=== PATIENT | male | born 1965 | race Caucasian/White ===

== ENCOUNTER 2017-07-24 13:46 | Inpatient (IN) | payer BC ==
--- NOTE | 2017-07-24 14:29 | PDOC ---
History of Present Illness - General History Source: Patient Exam Limitations: No Limitations - History of Present Illness Initial Comments: 07/24/17 15:29 The patient is a 52 year old male with a significant PMH of GERD who presents to the emergency department sent in by Dr. Bonner for further evaluation of chest pain that began approximately last night. The patient states the chest pain was of sudden onset located on left parasternum that radiates to the back, 5/10 in severity, intermittent, alleviated by lying flat, and exacerbated with walking. The patient endorses shortness of breath but denies diaphoresis, headache, dizziness, fever, chills, nausea, vomit, diarrhea and constipation. Denies dysuria, frequency, urgency and hematuria. Allergies: NKA Past surgical history: None reported. Social history: Hookah use. No reported drug or alcohol use. PCP: Dr. Bonner <Carly Warren - Last Filed: 07/24/17 15:38> <Adrianna Young - Last Filed: 07/25/17 21:18> - General Chief Complaint: Chest Pain Stated Complaint: CHEST PAIN Time Seen by Provider: 07/24/17 14:17 Past History <Carly Warren - Last Filed: 07/24/17 15:38> - Past Medical History Anemia: No Asthma: No Cancer: No Cardiac Disorders: No CVA: No COPD: No CHF: No Dementia: No Diabetes: No GI Disorders: Yes (GERD) Disorders: No HTN: No Hypercholesterolemia: No Liver Disease: No Seizures: No Thyroid Disease: No - Surgical History Abdominal Surgery: No Appendectomy: No Cardiac Surgery: No Cholecystectomy: No Lung Surgery: No Neurologic Surgery: No Orthopedic Surgery: No - Suicide/Smoking/Psychosocial Hx Smoking History: Former smoker Have you smoked in the past 12 months: No If you are a former smoker, when did you quit?: 14 YRS AGO Information on smoking cessation initiated: No Hx Alcohol Use: No Drug/Substance Use Hx: No Substance Use Type: None <Adrianna Young - Last Filed: 07/25/17 21:18> - Past Medical History Allergies/Adverse Reactions: Allergies Allergy/AdvReac Type Severity Reaction Status Date / Time No Known Allergies Allergy Verified 07/24/17 14:05 Home Medications: Ambulatory Orders NK [No Known Home Medication] 07/24/17 Review of Systems - Review of Systems Able to Perform ROS?: Yes Comments:: 07/24/17 15:37 GENERAL/CONSTITUTIONAL: No fever or chills. No weakness. HEAD, EYES, EARS, NOSE AND THROAT: No change in vision. No ear pain or discharge. No sore throat. CARDIOVASCULAR: (+) CP. (+) SOB. RESPIRATORY: No cough, wheezing, or hemoptysis. GASTROINTESTINAL: No nausea, vomiting, diarrhea or constipation. GENITOURINARY: No dysuria, frequency, or change in urination. MUSCULOSKELETAL: No joint or muscle swelling or pain. No neck or back pain. SKIN: No rash NEUROLOGIC: No headache, vertigo, loss of consciousness, or change in strength/ sensation. ENDOCRINE: No increased thirst. No abnormal weight change. HEMATOLOGIC/LYMPHATIC: No anemia, easy bleeding, or history of blood clots. ALLERGIC/IMMUNOLOGIC: No hives or skin allergy. <Carly Warren - Last Filed: 07/24/17 15:38> *Physical Exam - Vital Signs Last Vital Signs Temp Pulse Resp BP Pulse Ox 98.1 F 88 19 133/90 97 07/24/17 14:05 07/24/17 14:05 07/24/17 14:05 07/24/17 14:05 07/24/17 14:05 <Carly Warren - Last Filed: 07/24/17 15:38> - Vital Signs Last Vital Signs Temp Pulse Resp BP Pulse Ox 98.1 F 88 19 133/90 97 07/24/17 14:05 07/24/17 14:05 07/24/17 14:05 07/24/17 14:05 07/24/17 14:05 - Physical Exam Comments: GENERAL: Awake, alert, and fully oriented, in no acute distress HEAD: No signs of trauma EYES: PERRLA, EOMI, sclera anicteric, conjunctiva clear ENT: Auricles normal inspection, hearing grossly normal, nares patent, oropharynx clear without exudates. Moist mucosa NECK: Normal ROM, supple, no lymphadenopathy, JVD, or masses LUNGS: Breath sounds equal, clear to auscultation bilaterally. No wheezes, and no crackles HEART: Regular rate and rhythm, normal S1 and S2, no murmurs, rubs or gallops ABDOMEN: Soft, nontender, normoactive bowel sounds. No guarding, no rebound. No masses EXTREMITIES: Normal range of motion, no edema. No clubbing or cyanosis. No cords, erythema. +L calf tenderness. NEUROLOGICAL: Cranial nerves II through XII grossly intact. Normal speech, normal gait SKIN: Warm, Dry, normal turgor, no rashes or lesions noted. <Adrianna Young - Last Filed: 07/25/17 21:18> Heart Score/ECG Review - History History: Moderately suspicious - Electrocardiogram EKG: Normal - Age Age: 45-65 - Risk Factors Risk Factors Heart Score: Yes Smoking History Based on the list above the patient has:: 1-2 risk factors - Troponin Troponin: </= normal limit - Score Heart Score - Total: 3 - ECG Impressions Comment:: EKG read 14:07- NSR 84 bpm, no acute ST/T changes <Adrianna Young - Last Filed: 07/25/17 21:18> ED Treatment Course - LABORATORY CBC & Chemistry Diagram: 07/24/17 15:20 07/24/17 15:20 <Carly Warren - Last Filed: 07/24/17 15:38> - LABORATORY CBC & Chemistry Diagram: 07/24/17 15:20 07/24/17 15:20 <Adrianna Young - Last Filed: 07/25/17 21:18> Medical Decision Making - Medical Decision Making Case d/w Dr. Bonner via phone. Patient found to have LLE DVT. Will obtain CTA to r/o PE. Will admit based on chest pain. <Adrianna Young - Last Filed: 07/25/17 21:18> *DC/Admit/Observation/Transfer - Attestations Scribe Attestion: 07/24/17 15:38 Documentation prepared by Carly Warren, acting as medical coding auditor for Adrianna Young MD. <Carly Warren - Last Filed: 07/24/17 15:38> - Discharge Dispostion Admit: Yes <Adrianna Young - Last Filed: 07/25/17 21:18> Diagnosis at time of Disposition: Chest pain Qualifiers: Chest pain type: unspecified Qualified Code(s): R07.9 - Chest pain, unspecified DVT (deep venous thrombosis) Qualifiers: DVT location: lower extremity Affected thrombotic vein of extremity: unspecified vein of extremity Chronicity: acute Laterality: left Qualified Code( s): I82.402 - Acute embolism and thrombosis of unspecified deep veins of left lower extremity - Discharge Dispostion Condition at time of disposition: Stable
--- NOTE | 2017-07-24 14:33 | EKG ---
Test Reason : Blood Pressure : / mmHG Vent. Rate : 084 BPM Atrial Rate : 084 BPM P-R Int : 136 ms QRS Dur : 086 ms QT Int : 370 ms P-R-T Axes : 047 -01 024 degrees QTc Int : 437 ms NORMAL SINUS RHYTHM NONSPECIFIC T WAVE ABNORMALITY ABNORMAL ECG WHEN COMPARED WITH ECG OF 30-JUL-2015 08:03, NO SIGNIFICANT CHANGE WAS FOUND Confirmed by KYLEE GARCIA MD ([id number]) on 07/24/2017 2:32:45 PM Referred By: Confirmed By:KYLEE GARCIA MD
[2017-07-24 15:31] LABS: BASO % 1.2 % (0-2.0); EOS % 2.1 % (0-4.5); HEMATOCRIT 47.6 % (35.4-49); HEMOGLOBIN 16.6 GM/dL (11.7-16.9); LYMPH % 33.6 % (8-40); MCH 32.4 pg (25.7-33.7); MCHC 34.9 g/dl (32.0-35.9); MEAN CELL VOLUME 92.8 fl (80-96); MEAN PLT VOLUME 8.4 fl (7.5-11.1); MONO % 11.8 % (3.8-10.2); NEUT % 51.3 % (42.8-82.8); PLATELET COUNT 186 K/MM3 (134-434); RBC 5.12 M/mm3 (4.00-5.60)
[2017-07-24 15:47] LABS: INR 1.02 (0.82-1.09); PROTHROMBIN TIME (PATIENT) 11.5 SEC (9.98-11.88)
[2017-07-24 16:04] LABS: ANION GAP 10 (8-16); BLOOD UREA NITROGEN 17 mg/dL (7-18); CALCIUM 8.8 mg/dL (8.5-10.1); CHLORIDE 105 mmol/L (98-107); CO2 26 mmol/L (21-32); CREATININE 0.8 mg/dL (0.7-1.3); GLUCOSE,RANDOM 101 mg/dL (74-106); LIPASE 155 U/L (73-393); SGPT/ALT 78 U/L (12-78); SODIUM 141 mmol/L (136-145)
[2017-07-24 16:08] LABS: ALK PHOS 68 U/L (45-117); BILIRUBIN,TOTAL 0.4 mg/dL (0.2-1.0); TOT PROT 7.1 g/dl (6.4-8.2)
[2017-07-24 16:44] LABS: SGOT/AST 35 U/L (15-37)
[2017-07-24] MEDS ORDERED: ENOXAPARIN NA (PORCINE) 80 MG/0.8 ML DISP.SYRIN SQ SCH (17:15)
[2017-07-24] MEDS ORDERED: ENOXAPARIN NA (PORCINE) 100 MG/1 ML DISP.SYRIN SQ ONE (17:26)
[2017-07-24] MEDS: ACETAMINOPHEN 325 MG TABLET (FP) PO PRN (21:51)
[2017-07-25 05:29] VITALS: BMI 33.0
--- NOTE | 2017-07-25 08:20 | HP ---
Admitting History and Physical - Admission History of Present Illness: 52 year old male with a significant PMH of GERD who presents to the emergency department sent in by Dr. Bonner for further evaluation of chest pain that began approximately last night. The patient states the chest pain was of sudden onset located on left parasternum that radiates to the back, 5/10 in severity, intermittent, alleviated by lying flat, and exacerbated with walking. The patient endorses shortness of breath but denies diaphoresis, headache, dizziness , fever, chills, nausea, vomit, diarrhea and constipation. Denies dysuria, frequency, urgency and hematuria. - Past Medical History Cardiovascular: No: CAD, HTN, Hyperlipdemia Pulmonary: No: Asthma, COPD Gastrointestinal: Yes: GERD Endocrine: No: Diabetes Mellitus - Smoking History Smoking history: Former smoker Have you smoked in the past 12 months: No If you are a former smoker, when did you quit?: 14 YRS AGO - Alcohol/Substance Use Hx Alcohol Use: No Home Medications - Allergies Allergies/Adverse Reactions: Allergies Allergy/AdvReac Type Severity Reaction Status Date / Time No Known Allergies Allergy Verified 07/24/17 14:05 - Home Medications Home Medications: Ambulatory Orders NK [No Known Home Medication] 07/24/17 Review of Systems - Review of Systems Cardiovascular: reports: Chest Pain, Shortness of Breath Respiratory: reports: SOB, SOB on Exertion Gastrointestinal: reports: Indigestion Genitourinary: reports: No Symptoms Musculoskeletal: reports: Extremity Pain (yesterday going up the steps) Physical Examination Vital Signs: Vital Signs Temperature 98.1 F 07/25/17 07:55 Pulse Rate 67 07/25/17 07:55 Respiratory Rate 18 07/25/17 07:57 Blood Pressure 116/70 07/25/17 07:55 O2 Sat by Pulse Oximetry (%) 99 07/25/17 07:57 Cardiovascular: Yes: Regular Rate and Rhythm Respiratory: Yes: Regular, CTA Bilaterally Gastrointestinal: Yes: Normal Bowel Sounds, Soft Extremities: Yes: Other (minimal calf tenderness) Edema: No Labs: CBC, BMP 07/24/17 15:20 07/24/17 15:20 Imaging - Results Cat Scan: Report Reviewed (no pe) Ultrasound: Report Reviewed (left leg dvt) Problem List - Problems (1) Chest pain Assessment/Plan: CE NEGATIVE ECHO STRESS TEST--TIMING ER CARDIO CHECK LIPIDS Code(s): R07.9 - CHEST PAIN, UNSPECIFIED Qualifiers: Chest pain type: unspecified Qualified Code(s): R07.9 - Chest pain, unspecified (2) DVT (deep venous thrombosis) Assessment/Plan: [facility] HEM CONSULT W/U IN PROGRESS Code(s): I82.409 - ACUTE EMBOLISM AND THOMBOS UNSP DEEP VN UNSP LOWER EXTREMITY Qualifiers: DVT location: lower extremity Affected thrombotic vein of extremity: unspecified vein of extremity Chronicity: acute Laterality: left Qualified Code(s): I82.402 - Acute embolism and thrombosis of unspecified deep veins of left lower extremity
[2017-07-25 09:10] LABS: CHOLESTEROL 188 mg/dL (50-200); LDL CHOLESTEROL (ONLY SJRH) 136 mg/dL (5-100); TRIGLYCERIDES 154 mg/dL (35-160)
[2017-07-25 09:17] LABS: HDL CHOLESTEROL 33 mg/dL (40-60)
[2017-07-25] MEDS ORDERED: ENOXAPARIN NA (PORCINE) 100 MG/1 ML DISP.SYRIN SQ SCH (10:00)
[2017-07-25] MEDS: ASPIRIN COATED 81 MG TABLET.EC PO SCH (10:45)
--- NOTE | 2017-07-25 14:44 | CON.CARD ---
Consult Consult Specialty:: Cardiology Reason for Consultation:: CHest pain - History of Present Illness History of Present Illness: 52 M developed recent chest pain increased with sudden movement or with deep inspiration. Radiates to the back and sharp. DORY negative and normal ECG. Has Acute left leg DVT. CT of the chest does not show large vessel PE. His pain has improved. Still mild pain with quick movements or deep breathing. - Past Medical History Cardio/Vascular: No: CAD, HTN, Hyperlipdemia Pulmonary: No: Asthma, COPD Gastrointestinal: Yes: GERD Endocrine: No: Diabetes Mellitus - Alcohol/Substance Use Hx Alcohol Use: No - Smoking History Smoking history: Former smoker Have you smoked in the past 12 months: No If you are a former smoker, when did you quit?: 14 YRS AGO Home Medications - Allergies Allergies/Adverse Reactions: Allergies Allergy/AdvReac Type Severity Reaction Status Date / Time No Known Allergies Allergy Verified 07/24/17 14:05 - Home Medications Home Medications: Ambulatory Orders NK [No Known Home Medication] 07/24/17 Review of Systems - Review of Systems Constitutional: denies: Chills, Diaphoresis, Fever Eyes: reports: No Symptoms HENT: reports: No Symptoms Neck: reports: No Symptoms Cardiovascular: reports: Chest Pain. denies: Edema, Palpitations, Shortness of Breath Respiratory: reports: No Symptoms Gastrointestinal: reports: No Symptoms Genitourinary: reports: No Symptoms Vital Signs: Vital Signs Temperature 98.1 F 07/25/17 07:55 Pulse Rate 67 07/25/17 07:55 Respiratory Rate 18 07/25/17 07:57 Blood Pressure 116/70 07/25/17 07:55 O2 Sat by Pulse Oximetry (%) 99 07/25/17 07:57 Constitutional: Yes: Well Nourished, No Distress Eyes: Yes: Conjunctiva Clear, EOM Intact HENT: Yes: Atraumatic, Normocephalic Neck: Yes: Supple, Trachea Midline Respiratory: Yes: Regular, CTA Bilaterally Gastrointestinal: Yes: Normal Bowel Sounds, Soft Renal/: Yes: WNL Cardiovascular: Yes: Regular Rate and Rhythm JVD: No Carotid Bruit: No PMI: Non-Displaced Heart Sounds: Yes: S1, S2 Murmur: No: Systolic Murmur, Diastolic Murmur Musculoskeletal: Yes: WNL Extremities: Yes: WNL Edema: No - Other Data Labs, Other Data: CBC, BMP 07/24/17 15:20 07/24/17 15:20 INR, PTT INR 1.02 (0.82-1.09) 07/24/17 15:20 Troponin, BNP 07/24/17 07/25/17 15:20 08:30 Troponin I < 0.02 < 0.02 Troponin, BNP 07/24/17 07/25/17 15:20 08:30 Troponin I < 0.02 < 0.02 Problem List - Problems (1) Chest pain Code(s): R07.9 - CHEST PAIN, UNSPECIFIED Qualifiers: Chest pain type: unspecified Qualified Code(s): R07.9 - Chest pain, unspecified (2) DVT (deep venous thrombosis) Code(s): I82.409 - ACUTE EMBOLISM AND THOMBOS UNSP DEEP VN UNSP LOWER EXTREMITY Qualifiers: DVT location: lower extremity Affected thrombotic vein of extremity: unspecified vein of extremity Chronicity: acute Laterality: left Qualified Code(s): I82.402 - Acute embolism and thrombosis of unspecified deep veins of left lower extremity Assessment/Plan Chest pain is improving. Likely from small PE not seen on CT. ECG is normal and Echo shows normal LV size and function. RV function is normal. COntinue anticoagulation and trasition to NOAC Eliquis 10mg bid x 7 days then 5mg bid or Xarelto 15mg bid x21 days followed by 20mg qd. Alternatively if on coumadin should be bridged with LMWH. Please call with questions
--- NOTE | 2017-07-25 14:53 | CONSULT ---
Consult Consult Specialty:: Hematology - History of Present Illness History of Present Illness: 52 year old male with a significant PMH of GERD who presents to the emergency department sent in by Dr. Bonner for further evaluation of chest pain that began approximately last night. The patient states the chest pain was of sudden onset located on left parasternum that radiates to the back, 5/10 in severity, intermittent, alleviated by lying flat, and exacerbated with walking. The patient endorses shortness of breath but denies diaphoresis, headache, dizziness , fever, chills, nausea, vomit, diarrhea and constipation. Denies dysuria, frequency, urgency and hematuria. Found to have acute DVT Hematology consulted due to the DVT Patient seen and examined. - History Source History Provided By: Patient, Medical Record - Past Medical History Cardio/Vascular: No: CAD, HTN, Hyperlipdemia Pulmonary: No: Asthma, COPD Gastrointestinal: Yes: GERD Endocrine: No: Diabetes Mellitus - Alcohol/Substance Use Hx Alcohol Use: No - Smoking History Smoking history: Former smoker Have you smoked in the past 12 months: No If you are a former smoker, when did you quit?: 14 YRS AGO Home Medications - Allergies Allergies/Adverse Reactions: Allergies Allergy/AdvReac Type Severity Reaction Status Date / Time No Known Allergies Allergy Verified 07/24/17 14:05 - Home Medications Home Medications: Ambulatory Orders NK [No Known Home Medication] 07/24/17 Family Disease History - Family Disease History Family History: Denies Review of Systems - Review of Systems Constitutional: denies: Chills, Diaphoresis, Fever, Lethargy, Loss of Appetite Eyes: denies: Blind Spots, Blurred Vision HENT: denies: Difficult Swallowing Neck: denies: Decreased ROM, Lumps, Pain on Movement Cardiovascular: reports: Chest Pain. denies: Edema, Shortness of Breath Respiratory: denies: Cough, Exercise Intolerance Gastrointestinal: denies: Abdominal Pain, Bloating, Vomiting Blood Genitourinary: denies: Burning, Discharge, Dysuria, Incontinence, Lesions Musculoskeletal: reports: No Symptoms Integumentary: reports: No Symptoms Neurological: reports: Dizziness Hematology/Lymphatic: reports: No Symptoms Physical Exam Vital Signs: Vital Signs Temperature 98.1 F 07/25/17 07:55 Pulse Rate 67 07/25/17 07:55 Respiratory Rate 18 07/25/17 07:57 Blood Pressure 116/70 07/25/17 07:55 O2 Sat by Pulse Oximetry (%) 99 07/25/17 07:57 Constitutional: Yes: Well Nourished, No Distress, Calm Eyes: Yes: WNL, Conjunctiva Clear HENT: Yes: Atraumatic, Normocephalic Neck: Yes: Supple, Trachea Midline Cardiovascular: Yes: Regular Rate and Rhythm Respiratory: Yes: Regular, CTA Bilaterally. No: Accessory Muscle Use Gastrointestinal: Yes: Normal Bowel Sounds, Soft, Abdomen, Obese Musculoskeletal: Yes: Back Pain Extremities: Yes: WNL, Other (no swelling noted). No: Calf Tenderness Edema: No Labs: CBC, BMP 07/24/17 15:20 07/24/17 15:20 Imaging - Results Ultrasound: Report Reviewed MRI: Report Reviewed Problem List - Problems (1) DVT (deep venous thrombosis) Code(s): I82.409 - ACUTE EMBOLISM AND THOMBOS UNSP DEEP VN UNSP LOWER EXTREMITY Qualifiers: DVT location: lower extremity Affected thrombotic vein of extremity: unspecified vein of extremity Chronicity: acute Laterality: left Qualified Code(s): I82.402 - Acute embolism and thrombosis of unspecified deep veins of left lower extremity (2) Chest pain Code(s): R07.9 - CHEST PAIN, UNSPECIFIED Qualifiers: Chest pain type: unspecified Qualified Code(s): R07.9 - Chest pain, unspecified (3) Syncope and collapse Code(s): R55 - SYNCOPE AND COLLAPSE Assessment/Plan Acute DVT: Etiology ? Unclear at this point, could not elicit any "provoked" causes Treatment: Start Xarelto 15mg bid x 21 days ( from tomorrow ), followed by 20mg daily , would need to be sent to the pharmacy upon dc Duration of AC: to be determined , but likely would be at least for a period of 3months from now (unless w/u reveals otherwise) HyperCoag w/u sent out. Given his age and new DVT, would need age appropriate cancer screening as an OP CT chest reviewed with no suspicious masses D.w about the details of NOAC , r/b, and the need for cancer screen in detail to the pt. d/w PMD. Chest pain: ?etiology, no PE Per Cardiology Recent Brain MRI noted: he has a Neuro f/u in the OP setting
[2017-07-25] MEDS: ATORVASTATIN CA 20 MG TABLET (FP) PO SCH (21:00)
[2017-07-25] MEDS ORDERED: ENOXAPARIN NA (PORCINE) 100 MG/1 ML DISP.SYRIN SQ ONE (22:00)
[2017-07-26] MEDS: RIVAROXABAN 15 MG TABLET PO SCH ×2 (09:14→21:50)
[2017-07-26] MEDS: ASPIRIN COATED 81 MG TABLET.EC PO SCH (09:14)
--- NOTE | 2017-07-26 21:33 | PN ---
Progress Note, Physician Chief Complaint: DVT, Chest pain History of Present Illness: NAD, in bed resting had numbness of left arm and HUNT earlier, just has a headache now with photo and phonophobia, no history of migraines Xarelto loading dose 15 mg po BID seen by Hematology and cardiology No further intervention recommended at this time - Current Medication List Current Medications: Active Medications Acetaminophen (Tylenol -) 650 mg PO Q6H PRN PRN Reason: PAIN LEVEL 4 - 6 Last Admin: 07/24/17 21:51 Dose: 650 mg Aspirin (Ecotrin -) 81 mg PO DAILY [facility] Last Admin: 07/26/17 09:14 Dose: 81 mg Atorvastatin Calcium (Lipitor -) 20 mg PO HS [facility] Last Admin: 07/25/17 21:00 Dose: 20 mg Rivaroxaban (Xarelto -) 15 mg PO BID [facility] Last Admin: 07/26/17 09:14 Dose: 15 mg - Objective Vital Signs: Vital Signs Temperature 97.9 F 07/26/17 18:00 Pulse Rate 65 07/26/17 18:00 Respiratory Rate 18 07/26/17 18:00 Blood Pressure 120/74 07/26/17 18:00 O2 Sat by Pulse Oximetry (%) 100 07/26/17 08:00 Constitutional: Yes: Well Nourished, No Distress, Calm Cardiovascular: Yes: Regular Rate and Rhythm Respiratory: Yes: Regular Gastrointestinal: Yes: Normal Bowel Sounds, Soft Musculoskeletal: Yes: WNL Extremities: Yes: WNL Edema: No Peripheral Pulses WNL: Yes Neurological: Yes: Alert, Oriented Psychiatric: Yes: Alert, Oriented Labs: CBC, BMP 07/24/17 15:20 07/24/17 15:20 INR, PTT INR 1.02 (0.82-1.09) 07/24/17 15:20 Problem List - Problems (1) Chest pain Assessment/Plan: -seen by cardiology -tele -no cardiac intervention recommended at this time Code(s): R07.9 - CHEST PAIN, UNSPECIFIED Qualifiers: Chest pain type: unspecified Qualified Code(s): R07.9 - Chest pain, unspecified (2) DVT (deep venous thrombosis) Assessment/Plan: -seen by hematology -workup pending -started on Xarelto 15 mg po BID x 21 days then switch to 20 mg po daily, prescription sent to Pharmacy Code(s): I82.409 - ACUTE EMBOLISM AND THOMBOS UNSP DEEP VN UNSP LOWER EXTREMITY Qualifiers: DVT location: lower extremity Affected thrombotic vein of extremity: unspecified vein of extremity Chronicity: acute Laterality: left Qualified Code(s): I82.402 - Acute embolism and thrombosis of unspecified deep veins of left lower extremity Assessment/Plan see problem list f/u outpatient with hematology Tylenol for headaches
[2017-07-26] MEDS: ACETAMINOPHEN 325 MG TABLET (FP) PO PRN (21:50)
[2017-07-26] MEDS: ATORVASTATIN CA 20 MG TABLET (FP) PO SCH (21:50)
[2017-07-27] MEDS: RIVAROXABAN 15 MG TABLET PO SCH (09:47)
[2017-07-27] MEDS: ASPIRIN COATED 81 MG TABLET.EC PO SCH (09:47)
--- NOTE | 2017-07-27 11:47 | PN ---
Progress Note, Physician Chief Complaint: DVT, Chest pain History of Present Illness: NAD, in bed resting had numbness of left arm and HUNT earlier, just has a headache now with photo and phonophobia, no history of migraines Xarelto loading dose 15 mg po BID seen by Hematology and cardiology No further intervention recommended at this time - Current Medication List Current Medications: Active Medications Acetaminophen (Tylenol -) 650 mg PO Q6H PRN PRN Reason: PAIN LEVEL 4 - 6 Last Admin: 07/26/17 21:50 Dose: 650 mg Aspirin (Ecotrin -) 81 mg PO DAILY [facility] Last Admin: 07/27/17 09:47 Dose: 81 mg Atorvastatin Calcium (Lipitor -) 20 mg PO HS [facility] Last Admin: 07/26/17 21:50 Dose: 20 mg Rivaroxaban (Xarelto -) 15 mg PO BID [facility] Last Admin: 07/27/17 09:47 Dose: 15 mg - Objective Vital Signs: Vital Signs Temperature 97.9 F 07/27/17 07:20 Pulse Rate 63 07/27/17 07:20 Respiratory Rate 18 07/27/17 07:22 Blood Pressure 110/65 07/27/17 07:20 O2 Sat by Pulse Oximetry (%) 94 L 07/27/17 07:22 Constitutional: Yes: Well Nourished, No Distress, Calm Cardiovascular: Yes: Regular Rate and Rhythm Respiratory: Yes: Regular Gastrointestinal: Yes: Normal Bowel Sounds, Soft Musculoskeletal: Yes: WNL Extremities: Yes: WNL Edema: No Peripheral Pulses WNL: Yes Neurological: Yes: Alert, Oriented Psychiatric: Yes: Alert, Oriented Labs: CBC, BMP 07/24/17 15:20 07/24/17 15:20 INR, PTT INR 1.02 (0.82-1.09) 07/24/17 15:20 Problem List - Problems (1) Chest pain Assessment/Plan: -seen by cardiology -tele -no cardiac intervention recommended at this time Code(s): R07.9 - CHEST PAIN, UNSPECIFIED Qualifiers: Chest pain type: unspecified Qualified Code(s): R07.9 - Chest pain, unspecified (2) DVT (deep venous thrombosis) Assessment/Plan: -seen by hematology -workup pending -started on Xarelto 15 mg po BID x 21 days then switch to 20 mg po daily, prescription sent to Pharmacy Code(s): I82.409 - ACUTE EMBOLISM AND THOMBOS UNSP DEEP VN UNSP LOWER EXTREMITY Qualifiers: DVT location: lower extremity Affected thrombotic vein of extremity: unspecified vein of extremity Chronicity: acute Laterality: left Qualified Code(s): I82.402 - Acute embolism and thrombosis of unspecified deep veins of left lower extremity Assessment/Plan see problem list f/u outpatient with hematology Tylenol for headaches
[2017-07-27 18:13] VITALS: BP 111/60; PULSE 60; TEMP 98.2
== END 2017-07-27 18:39 | disposition home or self-care (01) | DRG 313 ==
LOC: JER 13:46 → JERBED 17:09 → J4W 19:10
PROVIDERS: ADMIT Family Medicine; ATTEND Family Medicine
DX: R07.89 Other chest pain (principal); I82.402 Acute embolism and thrombosis of unspecified deep veins of left lower extremity; K21.9 Gastro-esophageal reflux disease without esophagitis; R55 Syncope and collapse; R51 Headache
CPT/HCPCS: 36415; 71045-TC-FY; 71275-TC; 80053; 80061; 81241; 82378; 82550; 82553; 82784; 83036; 83690; 83721; 84155; 84165; 84443; 84484; 85025; 85597; 85610; 85730; 86038; 86146; 86147; 86334; 93005; 93010; 93306-TC; 93971-TC; 99284-25; A9502

== ENCOUNTER 2018-07-19 18:51 | Emergency (ER) | payer BC ==
[2018-07-19 18:55] VITALS: BP 124/77; PULSE 69; TEMP 97.3; BMI 28.1
[2018-07-19] MEDS ORDERED: IBUPROFEN 600 MG TABLET (FP) PO ONE ×2 (19:51→21:10)
--- NOTE | 2018-07-19 19:51 | PDOC ---
History of Present Illness - General Chief Complaint: Pain Stated Complaint: ABD PAIN Time Seen by Provider: 07/19/18 19:42 - History of Present Illness Initial Comments: 07/19/18 19:48 Patient is a 53 y/o male with a history of GERD who presents to the ED for a history of pain. The pain is in his right lower back and radiates around front. He states he feels it also radiate down into his penis. He reports he has been having increased frequency on urination and dysuria. Patient reports he had a UTI in the past with a kidney stone about ten years ago and was treated with abx. He denies hematuria or dysuria. Denies fevers, chills, nausea, vomiting, chest pain, or shortness of breath. Patient reports he is only sexually active with his . 07/19/18 19:57 f/u spiral CT, UA, motrin for pain 07/19/18 21:09 CT positive for 4 cm kidney stone, UA negative for any infection Past History - Past Medical History Allergies/Adverse Reactions: Allergies Allergy/AdvReac Type Severity Reaction Status Date / Time No Known Allergies Allergy Verified 07/19/18 18:55 Home Medications: Ambulatory Orders Acetaminophen [Tylenol .Regular Strength -] 650 mg PO Q6H PRN tablet 07/25/17 Aspirin Coated [Ecotrin -] 81 mg PO DAILY #30 tablet.ec 07/25/17 Atorvastatin Ca [Lipitor] 20 mg PO HS #30 tablet 07/25/17 Rivaroxaban [Xarelto -] 20 mg PO DAILY #30 tablet 07/25/17 Rivaroxaban [Xarelto] 15 mg PO BID #42 tablet 07/25/17 Anemia: No Asthma: No Cancer: No Cardiac Disorders: No CVA: No COPD: No CHF: No Dementia: No Diabetes: No GI Disorders: Yes (GERD) Disorders: No HTN: No Hypercholesterolemia: No Liver Disease: No Seizures: No Thyroid Disease: No - Surgical History Abdominal Surgery: No Appendectomy: No Cardiac Surgery: No Cholecystectomy: No Lung Surgery: No Neurologic Surgery: No Orthopedic Surgery: No - Suicide/Smoking/Psychosocial Hx Smoking History: Never smoked Have you smoked in the past 12 months: No If you are a former smoker, when did you quit?: 14 YRS AGO Hx Alcohol Use: No Drug/Substance Use Hx: No Substance Use Type: None Hx Substance Use Treatment: No Review of Systems - Review of Systems Constitutional: No: Chills, Fever HEENTM: No: Eye Pain Respiratory: No: Shortness of Breath Cardiac (ROS): No: Chest Pain ABD/GI: No: Diarrhea, Nausea, Vomiting : Yes: Dysuria, Frequency, Pain, Testicular Pain. No: Discharge, Hematuria, Testicular Swelling *Physical Exam - Vital Signs Last Vital Signs Temp Pulse Resp BP Pulse Ox 97.3 F L 69 18 124/77 99 07/19/18 18:52 07/19/18 18:52 07/19/18 18:52 07/19/18 18:52 07/19/18 18:52 - Physical Exam Comments: 07/19/18 19:55 GENERAL: A & O x3, no distress HEART: RRR, no murmurs, rubs or gallops LUNGS: CTAL B/L GI: tenderness to palpation in RLQ, normoactive bowel sounds MSK: positive R CVA tenderness : to testicular swelling or twisting, no discharge at the penis EXTREMITIES: no pitting edema SKIN: no rashes or lesions noted Moderate Sedation - Procedure Monitoring Vital Signs: Procedure Monitoring Vital Signs Temperature 97.3 F L 07/19/18 18:52 Pulse Rate 69 07/19/18 18:52 Respiratory Rate 18 07/19/18 18:52 Blood Pressure 124/77 07/19/18 18:52 O2 Sat by Pulse Oximetry (%) 99 07/19/18 18:52 ED Treatment Course - RADIOLOGY Radiology Studies Ordered: Category Date Time Status SPIRAL- RENAL-STONE CT [CT] Stat CT Scan 07/19/18 19:45 Ordered *DC/Admit/Observation/Transfer Diagnosis at time of Disposition: Kidney stone on right side - Discharge Dispostion Disposition: HOME Condition at time of disposition: Good - Referrals Referrals: Juve Bonner MD [Primary Care Provider] - Nir Ferguson MD [Staff Physician] - - Patient Instructions Printed Discharge Instructions: Kidney Stones -- Adult Additional Instructions: You came to the hospital for pain in your back. We did imaging that shows you have a kidney stone. It is small enough to pass on its own. Please continue to take Tylenol or Motrin for the pain. Do not exceed the maximum dose as stated on the bottle. Please make an appointment to follow up with your primary care physician. Also make an appointment with a urologist to follow up with your kidney stone. Please return to the Emergency Department if you have worsening of the pain, blood in your urine, fevers, chills, chest pain, or shortness of breath. - Post Discharge Activity
--- NOTE | 2018-07-19 19:56 | PDOC ---
Attending Attestation - [facility] HPI: 07/19/18 20:32 The patient is a 53 year old male, with a significant past medical history of GERD and kidney stones, who presents to the emergency department with, 1 day of right flank radiating around and down to the penis. Patient describes his pain as worsening when urinating with associated urinary frequency. He denies any penile discharge. He denies any recent hematuria. He denies any recent fevers, chills, headache or dizziness. He denies any recent nausea, vomit , diarrhea or constipation. He denies any recent chest pain or shortness of breath. Allergies: NKDA Social History: Hookah usage. Denies EtOH use and recreational drug use. Primary Care Physician: Dr. Juve Bonner - Medical Decision Making EXAM: SPIRAL- RENAL-STONE CT History: 53-year-old male evaluate for renal stone Comparison: None Procedure: CT scan abdomen and pelvis; stone protocol, dated July 19, 2018 . Axial images obtained followed by coronal and sagittal reconstructions. Study performed unenhanced. Findings: Liver demonstrates hepatomegaly with longitudinal dimension 18.6 cm. Areas of diffuse fatty infiltration of liver with focal fatty sparing noted. The unenhanced spleen spleen, pancreas, and adrenal glands are unremarkable. Gallbladder and gallbladder fossa normal in appearance. Punctate nonobstructing calculi intrarenal collecting system right kidney. Mild right-sided hydronephrosis and hydroureter, related to a 7 mm calculus distal right ureter, just proximal to the right UV junction. No evidence of left-sided urinary tract calculi or obstruction. Prostate gland and seminal vesicles normal configuration. Rectum and perirectal space unremarkable. No inflammatory changes of the large or small bowel identified. Terminal ileum and appendix within normal limits. No free intraperitoneal air or fluid identified. No abdominal wall defects noted. Abdominal aorta/branch vessels/IVC normal in configuration. Impression: 1. Limited CT scan abdomen and pelvis, unenhanced. 2. Punctate nonobstructing intrarenal calculi right kidney. Mild right-sided hydronephrosis and hydroureter related to a 7 mm calculus distal right ureter; just proximal to the right UV junction. One or more of the following dose reduction techniques were used: automated exposure control, adjustment of the mA and/or kV according to patient size, use of iterative reconstructive technique. Read by: Carmelo Vasquez MD <Cole Siu - Last Filed: 07/19/18 21:34> - Resident Resident Name: Kathie Shen - ED Attending Attestation I have performed the following: I have examined & evaluated the patient, The case was reviewed & discussed with the resident, I agree w/resident's findings & plan, Exceptions are as noted - Physicial Exam PE: GENERAL: Awake, alert, and fully oriented, in no acute distress HEAD: No signs of trauma EYES: PERRLA, EOMI, sclera anicteric, conjunctiva clear ENT: Auricles normal inspection, hearing grossly normal, nares patent, oropharynx clear without exudates. Moist mucosa NECK: Normal ROM, supple, no lymphadenopathy, JVD, or masses LUNGS: Breath sounds equal, clear to auscultation bilaterally. No wheezes, and no crackles HEART: Regular rate and rhythm, normal S1 and S2, no murmurs, rubs or gallops ABDOMEN: Soft, +RLQ tenderness, +R CVAT, normoactive bowel sounds. No rebound. No masses EXTREMITIES: Normal range of motion, no edema. No clubbing or cyanosis. No cords, erythema, or tenderness NEUROLOGICAL: Cranial nerves II through XII grossly intact. Normal speech, normal gait. Motor and sensation intact SKIN: Warm, Dry, normal turgor, no rashes or lesions noted. - Medical Decision Making Pt with prior history of kidney stone and UTI, presents with R flank pain radiating to the groin. Feels similar to prior stone. Will give NSAID for pain, obtain UA to r/o UTI, and CT r/o stone. Likely DC home. <Adrianna Young - Last Filed: 07/19/18 21:43> Attestations - Attestations 07/19/18 20:33 Documentation prepared by Cole Siu, acting as medical insurance verifier for Adrianna Young MD. <Cole Siu - Last Filed: 07/19/18 21:34>
[2018-07-19 20:38] LABS: URINE APPEARANCE CLEAR; URINE BILIRUBIN NEGATIVE (<2.0 mg/dL); URINE COLOR YELLOW; URINE GLUCOSE (UA) NEGATIVE (NEGATIVE); URINE KETONE NEGATIVE (NEGATIVE); URINE LEUK ESTERASE NEGATIVE (NEGATIVE); URINE NITRITE NEGATIVE (NEGATIVE); URINE PROTEIN 1+ (NEGATIVE); URINE UROBILINOGEN 4.0 E.U/dl mg/dL (0.2-1.0)
[2018-07-19 20:40] LABS: EPI CELLS RARE /HPF (FEW); URINE MUCUS RARE
== END 2018-07-19 21:48 | disposition home or self-care (01) ==
LOC: JER 18:51
DX: N20.0 Calculus of kidney (principal); K21.9 Gastro-esophageal reflux disease without esophagitis
CPT/HCPCS: 74176-TC; 81003; 81015; 99282-25